=== PATIENT | male | born 1940 | race Two or more races ===

== ENCOUNTER → 2020-04-11 | Emergency (ER) | payer OTHER ==
[~2020-04-11] VITALS: Ht 165.1 cm; Wt 90.7 kg
[~2020-04-11] MED LIST: ASA-EC81 MG PO; ATORVASTATIN CA20 MG PO; CELEBREX50 MG PO; CLONAZEPAM0.5 MG PO; COMBIVIR; CRESTOR10 MG PO; DAILY VITAMIN1 TAB PO; DILTIAZEM HCL30 MG PO; DONEPEZIL HCL10 MG PO; DOXEPIN HCL100 MG PO; FUROSEMIDE20 MG PO; GABAPENTIN800 M1; GLIPIZIDE ER5 MG PO; GLUCOSAMIN1 TAB.CHEW PO; JULUCA 50-25 M1 EACH; LEVOTHYROXINE175 MCG PO; LEVOTHYROXINE50 MCG PO; LOSARTAN POTAS100 MG PO; METFORMIN HCL1000 MG PO; METOPROLOL SUCC25 MG PO; NORFLEX 30MG30 MG/ML IM; NORVIR100 MG PO; REYATAZ300 MG PO; SEMGLEE100 UNIT/1 SUBCUTANEO; SERTRALINE HCL50 MG PO; TRICOR145 MG PO; VASOTEC10 MG NGT; VERAPAMIL HCL240 MG PO; VERAPAMIL HCL40 MG; VIREAD300 MG PO; VIT C 500 MG-E500 MG PO
== END | disposition left against medical advice (07) ==
LOC: ER 13:50 → CPU-OBS 14:18 → ER 14:18
DX: B20 Human immunodeficiency virus [HIV] disease (principal); I11.0 Hypertensive heart disease with heart failure; I50.9 Heart failure, unspecified; I48.0 Paroxysmal atrial fibrillation